=== PATIENT | male | born 1955 | race Caucasian/White ===

== ENCOUNTER → 2021-10-22 | Outpatient (CLI) | payer MEDICARE, OTHER | LOC: M SOG 08:37 | PROVIDERS: ATTEND Orthopaedic Surgery Adult Reconstructive Orthopaedic Surgery | DX: M16.11 Unilateral primary osteoarthritis, right hip (principal) ==

== ENCOUNTER → 2021-12-08 | Outpatient (CLI) | payer MEDICARE ==
[~2021-12-08] MED LIST: BACI1TAB3 PO; FINA5TAB2 PO; HYDR200T3 PO; KRIL1CAP6 PO; LISI20TA33 PO; METO100T5 PO; NABU-73 PO; NIFE1TAB52 PO; OCUVTAB4 PO; OMEP-173 PO; POTA1TAB23 PO; QVAR40AE12 INH; TERA10CA3 PO; THERTAB52 PO; TRAM37.53 PO; VALI5TAB PO; VITA100054 PO
== END ==
LOC: M RAD 11:16
PROVIDERS: ATTEND Orthopaedic Surgery Adult Reconstructive Orthopaedic Surgery
DX: M16.31 Unilateral osteoarthritis resulting from hip dysplasia, right hip (principal)

== ENCOUNTER → 2022-01-06 | Outpatient (CLI) | payer MEDICARE ==
[~2022-01-06] MED LIST changes: +ASCO50TA PO; +ASPI-551 PO; +COLA100C5 PO; +FERR1TAB8 PO; +NAPR-849 PO; +OXYC-517 PO
== END ==
LOC: M SOG 07:59
PROVIDERS: ATTEND Orthopaedic Surgery Adult Reconstructive Orthopaedic Surgery
DX: M16.31 Unilateral osteoarthritis resulting from hip dysplasia, right hip (principal)

== ENCOUNTER → 2022-02-03 | Outpatient (CLI) | payer MEDICARE | LOC: M SOG 13:28 | PROVIDERS: ATTEND Orthopaedic Surgery Adult Reconstructive Orthopaedic Surgery | DX: M17.12 Unilateral primary osteoarthritis, left knee (principal); M25.562 Pain in left knee; M25.561 Pain in right knee ==

== ENCOUNTER → 2022-11-16 | Outpatient (CLI) | payer MEDICARE ==
[2022-11-16 19:17] LABS: BLOOD UREA NITROGEN 26 MG/DL (9-23); CREATININE FOR GFR 1.11 MG/DL (0.70-1.30); GLOMERULAR FILTRATION RATE > 60.0 (>49)
== END ==
LOC: M WUC 15:31
PROVIDERS: ATTEND Internal Medicine Rheumatology
DX: M48.8X9 Other specified spondylopathies, site unspecified (principal); Z79.899 Other long term (current) drug therapy